=== PATIENT | male | born 1970 | race Caucasian/White ===

== ENCOUNTER 2022-01-17 10:08 | Emergency (ER) | payer BC | END 2022-01-17 11:58 | disposition home or self-care (01) | LOC: JD.ED 10:08 | DX: K64.9 Unspecified hemorrhoids (principal); E11.9 Type 2 diabetes mellitus without complications; Z79.899 Other long term (current) drug therapy; Z79.84 Long term (current) use of oral hypoglycemic drugs | CPT/HCPCS: 99282 ==

== ENCOUNTER 2024-07-13 13:08 | Day surgery (SDC) | payer BC ==
[~2024-07-13 13:08] MED LIST: Ketamine 200 MG/20 ML MDV ONE; Midazolam 1 MG/ML 2 ML SDV ONE; Propofol 200 MG/20 ML SDV ONE; dexmedeTOMIDine HCl 200 MCG/2 ML SDV ONE; fentaNYL 100 MCG/2 ML SDV ONE
[2024-07-13] MEDS: Lactated Ringers 1,000 ML IV SCH (13:35)
[2024-07-13] MEDS ORDERED: Phenylephrine 1% 10 MG/ML SDV ONE (13:39)
[2024-07-13] MEDS ORDERED: Propofol 200 MG/20 ML SDV ONE (14:00)
[2024-07-13] MEDS: Bupivacaine 0.5% 30 ML SDV ONE (14:22)
[2024-07-13] MEDS: EPINEPHrine 1 MG/ML SDV ONE (14:22)
[2024-07-13] MEDS ORDERED: Sodium Chloride 0.9% 10 ML Syringe FLUSH SCH (21:00)
== END 2024-07-13 15:45 ==
LOC: JD.SDS 13:08
PROVIDERS: ATTEND Surgery
DX: L05.01 Pilonidal cyst with abscess (principal); K21.9 Gastro-esophageal reflux disease without esophagitis; E78.00 Pure hypercholesterolemia, unspecified; E11.9 Type 2 diabetes mellitus without complications; Z79.4 Long term (current) use of insulin; Z79.84 Long term (current) use of oral hypoglycemic drugs; Z79.899 Other long term (current) drug therapy; Z87.891 Personal history of nicotine dependence
CPT/HCPCS: 11771; 82947; J0171; J0665; J2250; J2371; J2704; J3010; J3490; J7120; 00300